=== PATIENT | female | born 1985 | race Caucasian/White ===

== ENCOUNTER 2025-03-13 01:36 | Emergency (ER) | payer OTHER ==
[~2025-03-13] VITALS: Ht 177.8 cm; Wt 86.2 kg
[2025-03-13] MEDS ORDERED: Dicyclomine Hydrochloride 20 MG/10 ML OSYR PO STA (01:44)
[2025-03-13] MEDS ORDERED: MG-AL HYDROXIDE/SIMETICONE 30 ML UDC PO STA (01:44)
[2025-03-13] MEDS ORDERED: Ondansetron Hydrochloride 4 MG/2 ML VIAL IV ONE (01:45)
[2025-03-13] MEDS ORDERED: OMEPRAZOLE40 MG PO (02:47)
== END 2025-03-13 02:49 | disposition home or self-care (01) ==
LOC: ED 01:36
DX: K21.9 Gastro-esophageal reflux disease without esophagitis (principal)